=== PATIENT | female | born 1955 | race Caucasian/White ===

== ENCOUNTER 2021-08-14 08:00 | Outpatient (CLI) | payer MEDICARE ==
[2021-08-14 20:08] LABS: GLUCOSE, URINE (UA) NEGATIVE (NEGATIVE); KETONES,URINE (UA) NEGATIVE (NEGATIVE); LEUKOCYTE ESTERASE, URINE TRACE (NEGATIVE); NITRITE,URINE NEGATIVE (NEGATIVE); OCCULT BLOOD,URINE NEGATIVE (NEGATIVE); PROTEIN,URINE NEGATIVE (NEGATIVE); UROBILINOGEN,URINE 1 (NORMAL) E.U./dL (NORMAL)
[2021-08-14 20:13] LABS: BASOPHILS % (AUTO) 0.6 %; EOSINOPHILS # (AUTO) 0.1 10^3/uL (0.0-0.7); EOSINOPHILS % (AUTO) 1.4 %; HCT - HEMATOCRIT 46.3 % (37.0-47.0); HGB - HEMOGLOBIN 14.7 g/dL (12.0-16.0); LYMPHOCYTES # (AUTO) 1.5 10^3/uL (1.5-3.5); LYMPHOCYTES % (AUTO) 23.1 %; MEAN CORPUSCULAR HEMOGLOBIN 30.2 pg (27.0-31.0); MEAN CORPUSCULAR HGB CONC 31.7 g/dL (32.0-36.0); MEAN CORPUSCULAR VOLUME 95.1 fL (81.0-99.0); MEAN PLATELET VOLUME 11.7 fL (7.9-10.8); MONOCYTES # (AUTO) 0.6 10^3/uL (0.0-1.0); MONOCYTES % (AUTO) 8.9 %; NEUTROPHILS # (AUTO) 4.2 10^3/uL (1.5-6.6); NEUTROPHILS % (AUTO) 65.7 %; PLT - PLATELET COUNT 255 10^3/uL (130-450); RED BLOOD COUNT 4.87 10^6/uL (4.20-5.40); RED CELL DISTRIBUTION WIDTH 14.5 % (12.0-15.0); WHITE BLOOD COUNT 6.3 x10^3/uL (4.8-10.8)
[2021-08-14 20:14] LABS: ALBUMIN 4.1 g/dL (3.2-5.5); ALBUMIN/GLOBULIN RATIO 1.2 (1.0-2.2); BILIRUBIN,TOTAL 4.5 mg/dL (0.2-1.0); CALCIUM 11.2 mg/dL (8.5-10.3); CREATININE 0.7 mg/dL (0.4-1.0); TOTAL PROTEIN 7.5 g/dL (6.7-8.2)
[2021-08-14 20:15] LABS: CLARITY,URINE CLEAR (CLEAR)
[2021-08-14 20:22] LABS: PT - PROTHROMBIN TIME 10.9 secs (9.9-12.6)
[2021-08-14 20:23] LABS: BILIRUBIN,URINE MODERATE (NEGATIVE); ICTOTEST,URINE POSITIVE
[2021-08-14 20:29] LABS: BACTERIA,URINE Rare /HPF (None Seen); CRYSTALS,URINE 3-5 Bilirubin /LPF; RBC,URINE 0-5 /HPF (0-5); SQUAMOUS EPITHELIAL CELL,UR RARE Squamous (<= Few)
== END 2021-08-14 23:59 | disposition home or self-care (01) ==
LOC: LAB.S 08:00
PROVIDERS: ATTEND Emergency Medicine
DX: R82.2 Biliuria (principal)
CPT/HCPCS: 36415; 80053; 81001; 83690; 85025; 85610; 87077; 87086; 87181

== ENCOUNTER 2021-08-15 11:34 | Emergency (ER) | payer MEDICARE ==
--- NOTE | 2021-08-15 12:02 | ED Physician Documentation ---
History of Present Illness - Stated complaint Stated Complaint: FEMALE - Chief complaint Chief Complaint: General - History obtained from History obtained from: Patient - Additonal information Additional information: 66-year-old woman presents for the evaluation of painless jaundice. She was seen in urgent care yesterday for complaints of dark orange urine that has been going on for 10 days. It is associated with itchiness of her feet. There is no abdominal pain or weight loss associated with it. She was noted to have abnormal labs including bilirubin of 4.5, AST of 718, ALT of 1219, alkaline phosphatase of 577, calcium of 11.2. She has no personal history of malignancy. Has had some colonic polyps on prior colonoscopies, but most recent colonoscopy a couple of years ago was normal. She is a little behind on mammography but no history of problems there. She has had a hysterectomy, and may be some carcinoma in situ based on her description but nothing that needed further treatment. Her father at age 87 of liver cancer, its not clear whether this was a primary hepatic carcinoma or a metastatic malignancy because it progressed very quickly. Her brother is also undergoing a work-up for multiple malignancies including the pancreas, kidney, but no formal diagnosis of MEN or Other formal familial malignancy syndrome. She notes that a couple of months ago she did have some shawnee colored stools but more recently her stool color has been normal. Review of Systems Ten Systems: 10 systems reviewed and negative Constitutional: reports: Reviewed and negative Eyes: reports: Reviewed and negative Ears: reports: Reviewed and negative Nose: reports: Reviewed and negative Throat: reports: Reviewed and negative Cardiac: reports: Reviewed and negative Respiratory: reports: Reviewed and negative PD PAST MEDICAL HISTORY - Past Medical History Past Medical History: No - Past Surgical History Past Surgical History: Yes /HOSPICE COORDINATOR: Hysterectomy - Allergies Allergies/Adverse Reactions: Allergies Allergy/AdvReac Type Severity Reaction Status Date / Time No Known Drug Allergies Allergy Verified 08/15/21 11:43 - Living Situation Living Situation: reports: Alone - Social History Does the pt smoke?: No Does the pt drink ETOH?: No Does the pt have substance abuse?: No - Family History Family history: reports: Cancer (see hpi) PD ED PE NORMAL - Vitals Vital signs reviewed: Yes - General General: Alert and oriented X 3, No acute distress - HEENT HEENT: PERRL, EOMI - Neck Neck: Supple, no meningeal sign, No bony TTP - Cardiac Cardiac: RRR, No murmur - Respiratory Respiratory: No respiratory distress, Clear bilaterally - Abdomen Abdomen: Normal bowel sounds, Soft, Other (Bedside ultrasound demonstrates a dilated gallbladder without obvious gallstones. No obvious hepatic masses on this limited study) - Back Back: No CVA TTP, No spinal TTP - Derm Derm: Normal color, Warm and dry - Extremities Extremities: No edema, No calf tenderness / cord - Neuro Neuro: Alert and oriented X 3, Normal speech Results - Vitals Vitals: Vital Signs - 24 hr 08/15/21 08/15/21 08/15/21 11:37 14:30 16:00 Temperature 36.6 C 36.6 C 36.6 C Heart Rate 95 69 69 Respiratory 16 16 16 Rate Blood Pressure 144/87 H 137/85 H 137/85 H O2 Saturation 97 97 97 Oxygen O2 Source Room air - Labs Labs: Laboratory Tests 08/15/21 08/15/21 12:05 12:05 WBC 5.4 RBC 4.87 Hgb 14.8 Hct 45.0 MCV 92.4 MCH 30.4 MCHC 32.9 RDW 14.6 Plt Count 247 MPV 11.0 H Neut # (Auto) 3.6 Lymph # (Auto) 1.2 L [place] # (Auto) 0.5 Eos # (Auto) 0.0 Baso # (Auto) 0.0 Absolute Nucleated RBC 0.00 Nucleated RBC % 0.0 Sodium 136 Potassium 4.1 Chloride 102 Carbon Dioxide 23 Anion Gap 11.0 BUN 21 H Creatinine 0.5 Estimated GFR (MDRD) 124 Glucose 128 H Calcium 11.2 H Total Bilirubin 4.5 H Direct Bilirubin 3.1 H Indirect Bilirubin 1.4 AST 918 H ALT 1467 H Alkaline Phosphatase 631 H Total Protein 7.7 Albumin 4.2 Globulin 3.5 Albumin/Globulin Ratio 1.2 - Rads (name of study) CT A/P Radiology: EMP read contemporaneously (Intra and extrahepatic biliary dilation without obvious mass.) PD MEDICAL DECISION MAKING - ED course ED course: 66-year-old woman with painless jaundice. CT done to further elucidate and showing diffuse intra and extrahepatic biliary ductal dilatation, unfortunately with painless jaundice at this age this is likely related to malignancy at the outlet of the common duct. Thankfully it is at least not big enough to be seen nor is there evidence of metastases on the CT. With her permission I emailed the primary care physician who she will be seeing next week and gave her copies of her labs and CT. Case was discussed by phone with Dr. Reyes, a felt hanger associated with [facility] in [place]. She recommended MRCP as the next step, it should be urgent but not emergent and probably does not need to be transferred for same. The MRI here only operates Wednesday through and agreed to bring her back through the ED on Wednesday for MRCP and reconsultation based on the results. Departure - Departure Disposition: Home, Self Care Clinical Impression: Obstructive jaundice Condition: Good Record reviewed to determine appropriate education?: Yes Comments: You are seen today for obstructive jaundice. I have emailed the supervising physician for the PA you are going be seeing on Wednesday to bring them into the loop and I also discussed your case by phone with Dr. Reyes, a felt hanger associated with [facility] in [place]. After that discussion we decided probably the best thing would be for you to return Wednesday morning, fairly early, maybe 8 AM for an MRCP. And then reconsultation with GI at that juncture for further planning on work-up of why this is happening to you. Discharge Date/Time: 08/15/21 16:05
[2021-08-15 12:13] LABS: BASOPHILS % (AUTO) 0.6 %; EOSINOPHILS % (AUTO) 0.7 %; HGB - HEMOGLOBIN 14.8 g/dL (12.0-16.0); LYMPHOCYTES # (AUTO) 1.2 10^3/uL (1.5-3.5); LYMPHOCYTES % (AUTO) 22.8 %; MEAN CORPUSCULAR HEMOGLOBIN 30.4 pg (27.0-31.0); MEAN CORPUSCULAR HGB CONC 32.9 g/dL (32.0-36.0); MEAN CORPUSCULAR VOLUME 92.4 fL (81.0-99.0); MONOCYTES # (AUTO) 0.5 10^3/uL (0.0-1.0); MONOCYTES % (AUTO) 8.5 %; NEUTROPHILS # (AUTO) 3.6 10^3/uL (1.5-6.6); NEUTROPHILS % (AUTO) 66.7 %; PLT - PLATELET COUNT 247 10^3/uL (130-450); RED BLOOD COUNT 4.87 10^6/uL (4.20-5.40); RED CELL DISTRIBUTION WIDTH 14.6 % (12.0-15.0); WHITE BLOOD COUNT 5.4 x10^3/uL (4.8-10.8)
[2021-08-15 12:32] LABS: ALBUMIN 4.2 g/dL (3.2-5.5); ALBUMIN/GLOBULIN RATIO 1.2 (1.0-2.2); BILIRUBIN,DIRECT 3.1 mg/dL (0.1-0.5); BILIRUBIN,INDIRECT 1.4 mg/dL; BILIRUBIN,TOTAL 4.5 mg/dL (0.2-1.0); CALCIUM 11.2 mg/dL (8.5-10.3); CREATININE 0.5 mg/dL (0.4-1.0); POTASSIUM 4.1 mmol/L (3.5-5.0); TOTAL PROTEIN 7.7 g/dL (6.7-8.2)
[2021-08-15] MEDS ORDERED: IOVERSOL 320 50 ML VIAL ONE (12:49)
[2021-08-15] MEDS ORDERED: IOVERSOL 320 100 ML VIAL IVP ONE ×2 (12:49→14:18)
[2021-08-15] MEDS ORDERED: IOVERSOL 320 50 ML VIAL PO ONE (14:18)
--- NOTE | 2021-08-15 14:29 | CT Report ---
PROCEDURE: Abdomen/Pelvis W INDICATIONS: IV and PO, painless jaundice CONTRAST: IV CONTRAST: Optiray 320 ml: 100 PO CONTRAST: Optiray 320 ml50 TECHNIQUE: After the administration of oral and IV contrast, 5 mm thick sections acquired from the diaphragms to the symphysis. 5 mm thick coronal and sagittal reformats were acquired. For radiation dose reducti on, the following was used: automated exposure control, adjustment of mA and/or kV according to lokesh ent size. COMPARISON: None. FINDINGS: ABDOMEN: Lung bases: No acute findings. Heart:Normal in size. No pericardial effusion. Liver: Mild hepatic steatosis. Gallbladder: Distended appearance. No definite radiopaque calculi seen. Bile ducts: Intraoperative bile ducts appear diffusely dilated. There is also dilatation of the commo n bile duct measuring approximately 11 mm. Pancreas: Normal. Spleen: Normal. Adrenals: Normal. Kidneys and ureters: Normal. Stomach and duodenum: Possible trace hiatal hernia Bowel: No evidence of bowel obstruction. Colonic diverticulosis incidentally noted. Normal appearance of the appendix. Other: No free fluid or air. Abdominal nodes: Normal. Aorta: Normal in size. IVC: Normal. Ventral wall: Normal. PELVIS: Bladder and reproductive: Unremarkable. Pelvic nodes: Normal. Inguinal: No hernia. Bones: No vertebral body compression fracture. No suspicious bone lesion. IMPRESSION: Diffuse intra and extrahepatic bile duct dilatation although the exact etiology is unclear. No radiop aque calculus is seen. Further evaluation with MRCP/ERCP could be performed as clinically warranted. Please correlate clinically and with LFTs. Additional chronic and incidental findings as above. Reviewed by: Manuel Moreno MD on 08/15/2021 2:28 PM PST Approved by: Manuel Moreno MD on 08/15/2021 2:28 PM PST Station ID: [id number]
[2021-08-15 14:31] VITALS: BP 137/85
[2021-08-16 13:17] LABS: HEPATITIS A IGM NON-REACTIVE (NON-REACTIVE); HEPATITIS B CORE ANTIBODY IGM NON-REACTIVE (NON-REACTIVE); HEPATITIS B SURFACE ANTIGEN NON-REACTIVE (NON-REACTIVE); HEPATITIS C ANTIBODY NON-REACTIVE (NON-REACTIVE)
== END 2021-08-15 16:05 | disposition home or self-care (01) ==
LOC: ED 11:34
DX: K83.1 Obstruction of bile duct (principal); Z80.0 Family history of malignant neoplasm of digestive organs; Z90.710 Acquired absence of both cervix and uterus
CPT/HCPCS: 36415; 74177; 80053; 80074; 82247; 82248; 85025; 99284; 99285; Q9967

== ENCOUNTER 2021-08-18 08:33 | Emergency (ER) | payer MEDICARE ==
[2021-08-18 09:06] LABS: BASOPHILS # (AUTO) 0.1 10^3/uL (0.0-0.1); BASOPHILS % (AUTO) 1.1 %; EOSINOPHILS # (AUTO) 0.1 10^3/uL (0.0-0.7); EOSINOPHILS % (AUTO) 1.5 %; HCT - HEMATOCRIT 41.9 % (37.0-47.0); HGB - HEMOGLOBIN 13.6 g/dL (12.0-16.0); LYMPHOCYTES # (AUTO) 1.1 10^3/uL (1.5-3.5); LYMPHOCYTES % (AUTO) 22.3 %; MEAN CORPUSCULAR HEMOGLOBIN 29.8 pg (27.0-31.0); MEAN CORPUSCULAR HGB CONC 32.5 g/dL (32.0-36.0); MEAN CORPUSCULAR VOLUME 91.9 fL (81.0-99.0); MONOCYTES # (AUTO) 0.4 10^3/uL (0.0-1.0); MONOCYTES % (AUTO) 8.3 %; NEUTROPHILS # (AUTO) 3.1 10^3/uL (1.5-6.6); PLT - PLATELET COUNT 235 10^3/uL (130-450); RED BLOOD COUNT 4.56 10^6/uL (4.20-5.40); RED CELL DISTRIBUTION WIDTH 15.2 % (12.0-15.0); WHITE BLOOD COUNT 4.7 x10^3/uL (4.8-10.8)
[2021-08-18 09:30] LABS: ALBUMIN 4.1 g/dL (3.2-5.5); ALBUMIN/GLOBULIN RATIO 1.4 (1.0-2.2); BILIRUBIN,TOTAL 4.5 mg/dL (0.2-1.0); CALCIUM 11.1 mg/dL (8.5-10.3); CREATININE 0.6 mg/dL (0.4-1.0); POTASSIUM 3.7 mmol/L (3.5-5.0); TOTAL PROTEIN 7.1 g/dL (6.7-8.2)
[2021-08-18] MEDS ORDERED: GADOBUTROL 10 MMOL/10 ML VIAL ONE (11:39)
--- NOTE | 2021-08-18 14:08 | MRI Report ---
PROCEDURE: MRCP W/WO INDICATIONS: painless jaundice with dilated biliary system TECHNIQUE: Coronal ultra fast SE through the abdomen, axial 2-D spoiled GE in- and jro-lc-finnk, and breath-hold T2 FSE with fat saturation through the biliary system and pancreas. Oblique coronal and axial thin- slice ultra fast SE, radial thick-slab ultra fast SE centered on the extrahepatic bile ducts. COMPARISON: CT abdomen and pelvis with contrast, 08/15/2021. FINDINGS: Image quality: Excellent. Pancreas and biliary system: There is intra-hepatic and extra-hepatic biliary duct dilation. The comm on bile duct measures up to 17 mm. No intraluminal filling defects to suggest intraluminal stones. T here is abrupt tapering of the common bile duct at the ampulla. Pancreas is normal in morphology, without adjacent soft tissue edema. Pancreatic duct is mildly prom inent measuring 3.2 mm in diameter. No pancreas divisum. Gallbladder is distended. Other solid organs: Liver and spleen are normal in size. No adrenal nodules. Both kidneys are norm al in size, without hydronephrosis. Nodes and vessels: No retroperitoneal or mesenteric adenopathy by size criteria. Aorta and inferior vena cava are normal in size. Bowel and peritoneum: Unenhanced bowel loops are normal in caliber. No free fluid. Lung bases: No basal pleural effusions. Heart size is normal. Bones and soft tissues: No ventral hernias. Bone marrow is of normal overall signal. IMPRESSION: 1. There is weadzhgf-fm-lyepze intrahepatic and extrahepatic biliary dilation. Common bile duct measu res up to 17 mm. No intraluminal filling defects to suggest common bile duct stones. There is abrupt tapering of the distal common bile duct at the ampulla. Although a discrete mass is not identified, a n obstructive mass in ampulla is not excluded. Recommend ERCP for further evaluation. 2. Distended gallbladder. No gallstones. 3. Slightly prominent pancreatic duct measuring up to 3.2 mm in diameter. 4. No discrete hepatic masses are identified. 5. No lymphadenopathy in abdomen. Reviewed by: Santiago Stephens MD on 08/18/2021 2:06 PM PST Approved by: Santiago Stephens MD on 08/18/2021 2:06 PM PST Station ID: [id number]
[2021-08-18 14:20] VITALS: BP 127/79
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
[2021-08-20] MEDS ORDERED: GADOBUTROL 10 MMOL/10 ML VIAL IVP ONE (07:57)
== END 2021-08-18 16:20 | disposition home or self-care (01) ==
LOC: ED 08:33
DX: K83.1 Obstruction of bile duct (principal)
CPT/HCPCS: 36415; 74183; 80053; 83690; 85025; 99284; A9585

== ENCOUNTER 2023-04-07 08:00 | Outpatient (CLI) | payer MEDICARE, OTHER ==
[2023-04-07 21:51] LABS: BACTERIAL VAGINOSIS DNA NEGATIVE (NEGATIVE); CANDIDA GLABRATA DNA NEGATIVE (NEGATIVE); CANDIDA GROUP DNA NEGATIVE (NEGATIVE); CANDIDA KRUSEI DNA NEGATIVE (NEGATIVE); TRICHOMONAS VAGINALIS DNA NEGATIVE (NEGATIVE)
== END 2023-04-07 23:59 | disposition home or self-care (01) ==
LOC: LAB.S 08:00
PROVIDERS: ATTEND Internal Medicine
DX: N89.8 Other specified noninflammatory disorders of vagina (principal)
CPT/HCPCS: 81514

== ENCOUNTER 2023-04-08 07:16 | Outpatient (CLI) | payer MEDICARE, OTHER ==
[2023-04-08 14:43] LABS: ALBUMIN 3.7 g/dL (3.2-5.5); ALBUMIN/GLOBULIN RATIO 1.4 (1.0-2.2); ALKALINE PHOSPHATASE 131 IU/L (42-121); ALT ALANINE AMINOTRANSFERASE 42 IU/L (10-60); AST ASPARTATE AMINOTRANSFERASE 29 IU/L (10-42); BILIRUBIN,TOTAL 0.6 mg/dL (0.2-1.0); BUN - BLOOD UREA NITROGEN 21 mg/dL (6-20); CALCIUM 9.4 mg/dL (8.5-10.3); CARBON DIOXIDE - CO2 24 mmol/L (21-32); CHLORIDE 110 mmol/L (101-111); CHOL/HDL RATIO 4.1 (<4.4); CHOLESTEROL 179 mg/dL; CREATININE 0.7 mg/dL (0.4-1.0); GFR - MDRD 83 (>89); GLUCOSE 105 mg/dL (70-100); HDL CHOLESTEROL 44 mg/dL; LDL CHOLESTEROL,CALCULATED 118 mg/dL; LDL/HDL RATIO 2.7 (<4.4); POTASSIUM 4.2 mmol/L (3.5-5.0); SODIUM 138 mmol/L (135-145); TOTAL PROTEIN 6.4 g/dL (6.7-8.2); TRIGLYCERIDES 83 mg/dL; VLDL CHOLESTEROL 17 mg/dL
[2023-04-08 15:02] LABS: FOLATE 17.84 ng/mL (5.90 - >24.8)
[2023-04-08 20:21] LABS: ESTIMATED AVERAGE GLUCOSE 108 mg/dL (70-100); HEMOGLOBIN A1c% 5.4 % (4.27-6.07)
[2023-04-09 07:10] LABS: VITAMIN D 25-HYDROXY 30.9 ng/mL (30.0-100.0)
== END 2023-04-08 07:17 | disposition home or self-care (01) ==
LOC: LAB.S 07:16
PROVIDERS: ATTEND Internal Medicine
DX: K76.0 Fatty (change of) liver, not elsewhere classified (principal); R63.5 Abnormal weight gain; N89.8 Other specified noninflammatory disorders of vagina; T81.9XXS Unspecified complication of procedure, sequela; C25.9 Malignant neoplasm of pancreas, unspecified
CPT/HCPCS: 36415; 80053; 80061; 82306; 82607; 82746; 83036; 83721; 84630

== ENCOUNTER 2024-03-08 11:15 | Outpatient (CLI) | payer MEDICARE, OTHER ==
--- NOTE | 2024-03-14 10:53 | Mammography Report ---
BILATERAL DIGITAL SCREENING MAMMOGRAM 3D/2D: 03/08/2024 CLINICAL: Routine screening. Comparison is made to exams dated: 01/10/2016 mammogram, 01/15/2016 stereotactic biopsy, 07/15/2019 amado mogram, 07/08/2018 mammogram, and 08/05/2016 mammogram - [facility]. There are scattered areas of fibroglandular density in both breasts (category b / 25%-50% glandular t issue). There are grouped calcifications in the right breast at 1 o'clock middle depth. No other significant masses, calcifications, or other findings are seen in either breast. IMPRESSION: INCOMPLETE: NEEDS ADDITIONAL IMAGING EVALUATION The grouped calcifications in the right breast are indeterminate. Magnification views are recommende d. Based on the Tyrer Cuzick model (a risk assessment model) the patient's lifetime risk is 6.2% and her 10 year risk is 3.5%. According to the ACR, ACS, and NCCN guidelines, an annual breast MRI exam noé g with mammogram is recommended if the patient's lifetime risk is 20% or greater. This exam was interpreted at Station ID: [id number]. NOTE: For mammograms, a report in lay terms will be sent to the patient. Approximately 15% of breast malignancies will not be visualized mammographically. In the management of a palpable breast mass, a negative mammogram must not discourage biopsy of a clinically suspicious lesion. Electronically Signed By: Lory Marino M.D. lk/:03/13/2024 13:18:15 ACR BI-RADS Category 0: Incomplete 3340F PARENCHYMAL PATTERN: (A) - The breast(s) demonstrate(s) scattered fibroglandular densities. BI-RADS CATEGORY: (0) - 0 RECOMMENDATION: (ADDMAM) - Recommend additional mammographic views. [id number] Immediate follow-up LATERALITY: (B)
== END 2024-03-08 11:16 | disposition home or self-care (01) ==
LOC: DI 11:15
DX: Z12.31 Encounter for screening mammogram for malignant neoplasm of breast (principal); R92.1 Mammographic calcification found on diagnostic imaging of breast; R92.323 Mammographic fibroglandular density, bilateral breasts

== ENCOUNTER 2024-04-18 10:50 | Outpatient (CLI) | payer MEDICARE, OTHER ==
--- NOTE | 2024-04-19 11:00 | Mammography Report ---
UNILATERAL RIGHT DIGITAL DIAGNOSTIC MAMMOGRAM 3D/2D WITH MAGNIFICATION: 04/18/2024 CLINICAL: Patient returns for magnification views of microcalcifications in the right breast. Comparison is made to exams dated: 03/08/2024 mammogram - [facility], 07/08/2018 mamm ogram, 07/15/2019 mammogram, 08/05/2016 mammogram, 07/29/2016 mammogram, and 01/15/2016 stereotactic bi opsy - [facility] [place]. There are scattered areas of fibroglandular density in the right breast (category b / 25%-50% glandul ar tissue). There are grouped calcifications in the right breast at 1 o'clock middle depth. These are seen in ad ditional views. No other significant masses or calcifications are seen in the breast. Other benign calcifications ar e again seen. IMPRESSION: PROBABLY BENIGN The grouped calcifications in the right breast are probably benign, increased from 07/15/2019. Other benign calcifications are present, as before. A follow-up mammogram in 6 months is recommended to demonstrate stability. Based on the Tyrer Cuzick model (a risk assessment model) the patient's lifetime risk is 6.2% and her 10 year risk is 3.5%. According to the ACR, ACS, and NCCN guidelines, an annual breast MRI exam noé g with mammogram is recommended if the patient's lifetime risk is 20% or greater. This exam was interpreted at Station ID: [id number]. NOTE: For mammograms, a report in lay terms will be sent to the patient. Approximately 15% of breast malignancies will not be visualized mammographically. In the management of a palpable breast mass, a negative mammogram must not discourage biopsy of a clinically suspicious lesion. Electronically Signed By: Akash Mar M.D. lc/:04/18/2024 11:12:05 ACR BI-RADS Category 3: Probably benign 3343F PARENCHYMAL PATTERN: (A) - The breast(s) demonstrate(s) scattered fibroglandular densities. BI-RADS CATEGORY: (3) - 3 Mammogram [id number] 6 month follow-up LATERALITY: (B)
== END 2024-04-18 10:51 | disposition home or self-care (01) ==
LOC: DI 10:50
PROVIDERS: ATTEND Registered Nurse
DX: R92.1 Mammographic calcification found on diagnostic imaging of breast (principal)